=== PATIENT | male | born 1945 | race Caucasian/White ===

== ENCOUNTER 2019-07-29 18:18 | Emergency (ER) | payer MEDICARE ==
[~2019-07-29] VITALS: Ht 177.8 cm; Wt 124.5 kg
[2019-07-29 18:28] VITALS: BP 138/76
--- NOTE | 2019-07-29 18:54 | NUR ---
PT HERE WITH C/O LEFT EYE PAIN WITH LEFT EYELID DROOP. 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
--- NOTE | 2019-07-29 19:06 | NUR ---
AT BEDSIDE FOR EXAM.
--- NOTE | 2019-07-29 20:36 | NUR ---
PIV ESTABLISHED BY TASK RN. PT TO MRI.
--- NOTE | 2019-07-29 21:09 | NUR ---
BEDSIDE REPORT GIVEN TO NHUNG GENAO. CARE TRANSFERRED.
--- NOTE | 2019-07-29 21:17 | NUR ---
ASSUMED CARE OF PT AT THIS TIME
[2019-07-29] MEDS ORDERED: GADOTERATE 10 MMOL/20 ML SYR ONE (21:21)
[2019-07-29 21:52] LABS: BASOPHILS # (AUTO) 0.02 x10^3/uL (0-0.1); BASOPHILS % (AUTO) 0 % (0-1); EOSINOPHILS # (AUTO) 0.22 x10^3/uL (0-0.4); EOSINOPHILS % (AUTO) 3 % (1-7); LYMPHOCYTES # (AUTO) 1.69 x10^3/uL (1-3.4); LYMPHOCYTES % (AUTO) 22 % (22-44); MD NO; MEAN CORPUSCULAR HEMOGLOBIN 32.1 pg (27.5-34.5); MEAN CORPUSCULAR HGB CONC 32.8 g/dL (33.2-36.2); MEAN CORPUSCULAR VOLUME 97.8 fL (81-97); MEAN PLATELET VOLUME 9.8 fL (7.4-10.4); MONOCYTES # (AUTO) 0.73 x10^3/uL (0.2-0.8); MONOCYTES % (AUTO) 9 % (2-9); NEUTROPHILS # (AUTO) 5.21 x10^3/uL (1.8-6.8); NEUTROPHILS % (AUTO) 66 % (42-75); PLATELET COUNT 229 x10^3/uL (130-400); RED BLOOD COUNT 4.74 x10^6/uL (4.38-5.82); RED CELL DISTRIBUTION WIDTH 13.3 % (9.4-14.8)
[2019-07-29 22:01] LABS: ALBUMIN 3.9 g/dL (3.4-5.0); ANION GAP 5 mmol/L (5-15); CALCIUM 9.1 mg/dL (8.5-10.1); CHLORIDE 111 mmol/L (98-107); CREATININE 1.23 mg/dL (0.7-1.3)
[2019-07-29] MEDS ORDERED: PYRIDOSTIGMINE 60 MG TABLET PO ONE (22:30)
--- NOTE | 2019-07-29 22:54 | NUR ---
Patient/Caregiver given discharge instructions and they have confirmed that they understand the instructions. Patient ambulatory with steady gait.
== END 2019-07-29 22:55 | disposition home or self-care (01) ==
LOC: ED 21:18
DX: G70.01 Myasthenia gravis with (acute) exacerbation (principal); H02.402 Unspecified ptosis of left eyelid; J44.9 Chronic obstructive pulmonary disease, unspecified; I10 Essential (primary) hypertension; I25.2 Old myocardial infarction; Z72.89 Other problems related to lifestyle; Z87.891 Personal history of nicotine dependence
CPT/HCPCS: 36415; 70553; 80048; 82040; 83519; 85025; 99284; A9575

== ENCOUNTER 2019-10-02 11:13 | Outpatient (CLI) | payer MEDICARE | END 2019-10-02 23:59 | disposition home or self-care (01) | LOC: CFH 11:13 | PROVIDERS: ATTEND Psychiatry & Neurology Neurology | DX: G70.01 Myasthenia gravis with (acute) exacerbation (principal) | CPT/HCPCS: 83519 ==

== ENCOUNTER → 2019-10-29 | Outpatient (CLI) | payer MEDICARE ==
[~2019-10-29] MED LIST: OMNIPAQUE 350 MG/ML, 75ML BOTTLE ONE
== END | disposition home or self-care (01) ==
LOC: CFH 10:20
PROVIDERS: ATTEND Psychiatry & Neurology Neurology
DX: J43.9 Emphysema, unspecified (principal); Z95.1 Presence of aortocoronary bypass graft; I70.0 Atherosclerosis of aorta; K80.20 Calculus of gallbladder without cholecystitis without obstruction; N62 Hypertrophy of breast; M47.814 Spondylosis without myelopathy or radiculopathy, thoracic region; G70.01 Myasthenia gravis with (acute) exacerbation; J98.4 Other disorders of lung
CPT/HCPCS: 71260; 82565; Q9967

== ENCOUNTER → 2020-10-21 | Outpatient (CLI) | payer MEDICARE | END | disposition home or self-care (01) | LOC: PETCFH 13:36 | PROVIDERS: ATTEND Internal Medicine Critical Care Medicine | DX: R91.8 Other nonspecific abnormal finding of lung field (principal); I71.4 Abdominal aortic aneurysm, without rupture; K80.20 Calculus of gallbladder without cholecystitis without obstruction | CPT/HCPCS: 78815; A9552 ==

== ENCOUNTER → 2020-10-27 | Outpatient (CLI) | payer MEDICARE ==
[~2020-10-27] MED LIST changes: +ALBU90AE2 INH; +ATOR40TA78 PO; +CARV-39 PO; +DICL100G29 TP; +FLUT1BLS3 INH; +GABA300C PO; +HYDR-3237 PO; +MYCO500T3 PO; -OMNIPAQUE 350 MG/ML, 75ML BOTTLE ONE; +PYRI60TA PO; +SPIR25TA5 PO; +TIZA4TAB2 PO; +TRAZ-96 PO
[2020-10-27 15:08] LABS: BASOPHILS % (AUTO) 1 % (0-1); EOSINOPHILS % (AUTO) 2 % (1-7); LYMPHOCYTES % (AUTO) 20 % (22-44); MEAN CORPUSCULAR HEMOGLOBIN 30.8 pg (27.5-34.5); MEAN CORPUSCULAR HGB CONC 32.9 g/dL (33.2-36.2); MEAN PLATELET VOLUME 9.4 fL (7.4-10.4); MONOCYTES % (AUTO) 10 % (2-9); NEUTROPHILS % (AUTO) 67 % (42-75); PLATELET COUNT 241 x10^3/uL (130-400); RED BLOOD COUNT 4.29 x10^6/uL (4.38-5.82); RED CELL DISTRIBUTION WIDTH 13.3 % (9.4-14.8)
[2020-10-27 15:09] LABS: MD NO
[2020-10-27 15:16] LABS: INTERNATIONAL NORMALIZED RATIO 1.09 (0.93-1.1); PROTHROMBIN TIME 11.6 Seconds (9.6-11.5)
[2020-10-27 15:17] LABS: ALBUMIN 3.5 g/dL (3.4-5.0); ANION GAP 4 mmol/L (5-15); CALCIUM 8.4 mg/dL (8.5-10.1); CHLORIDE 111 mmol/L (98-107)
[2020-10-27 15:20] LABS: ALANINE AMINOTRANSFERASE 23 U/L (12-78); ALKALINE PHOSPHATASE 66 U/L (45-117); BILIRUBIN,TOTAL 0.4 mg/dL (0.2-1.0); CREATININE 1.27 mg/dL (0.7-1.3)
== END | disposition home or self-care (01) ==
LOC: STAR 13:44
PROVIDERS: ATTEND Neurological Surgery
DX: Z01.812 Encounter for preprocedural laboratory examination (principal); Z20.822 Contact with and (suspected) exposure to COVID-19; J44.9 Chronic obstructive pulmonary disease, unspecified; M48.062 Spinal stenosis, lumbar region with neurogenic claudication
CPT/HCPCS: 36415; 71046; 80053; 85025; 85610; 85730; 93005; U0003

== ENCOUNTER 2020-11-02 06:15 | Observation (INO) | payer MEDICARE ==
[~2020-11-02] VITALS: Ht 177.8 cm; Wt 132.0 kg
[2020-11-02] MEDS ORDERED: CHLORHEXIDINE 15 ML UDC PO ONE ×2 (07:30→09:00)
[2020-11-02] MEDS ORDERED: LACTATED RINGERS 1,000 ML IV SCH ×2 (07:30→09:00)
[2020-11-02] MEDS ORDERED: FENTANYL PF 250 MCG/5ML ONE (07:58)
[2020-11-02] MEDS ORDERED: PROPOFOL 50 ML ONE ×2 (07:58→10:34)
[2020-11-02] MEDS ORDERED: MIDAZOLAM 1 MG/ML, 2ML ONE (07:58)
[2020-11-02] MEDS ORDERED: EPINEPHRINE 1 MG/ML, 1ML ONE (08:32)
[2020-11-02] MEDS ORDERED: BACITRACIN 50,000 UNIT ONE (08:32)
[2020-11-02] MEDS ORDERED: BUPIVACAINE/PF 0.5% ONE (08:32)
[2020-11-02] MEDS ORDERED: CEFAZOLIN 1,000 MG ONE ×2 (08:48)
[2020-11-02] MEDS ORDERED: PROPOFOL 10 MG/ML, 20ML ONE (08:48)
[2020-11-02] MEDS ORDERED: DEXAMETHASONE 4 MG/ML, 1ML ONE ×2 (08:49)
[2020-11-02] MEDS ORDERED: ROCURONIUM 10MG/ML,5ML ONE (08:49)
[2020-11-02] MEDS ORDERED: ONDANSETRON 2MG/ML, 2ML ONE (08:49)
[2020-11-02] MEDS ORDERED: LIDOCAINE-MPF 2% ,5ML ONE (08:49)
[2020-11-02] MEDS ORDERED: PROMETHAZINE 25 MG/ML, 1ML IVPush PRN (10:30)
[2020-11-02] MEDS ORDERED: LABETALOL 5MG/ML, 20ML IV PRN ×2 (10:30→13:00)
[2020-11-02] MEDS ORDERED: HYDROmorphone 1 MG/ML, 1ML INJ IVPush PRN (10:30)
[2020-11-02] MEDS ORDERED: DIAZEPAM 5 MG/ML, 2ML IVPush PRN (10:30)
[2020-11-02] MEDS ORDERED: DIPHENHYDRAMINE 50 MG/ML, 1ML IVPush PRN ×2 (10:30→13:00)
[2020-11-02] MEDS ORDERED: ACETAMINOPHEN 325 MG TABLET PO PRN (10:30)
[2020-11-02] MEDS ORDERED: OXYcodone 5 MG/5 ML ORAL.SOL UDC PO PRN (10:30)
[2020-11-02] MEDS ORDERED: hydrALAzine 20 MG/ML, 1ML IV PRN (10:30)
[2020-11-02] MEDS ORDERED: MEPERIDINE/PF 25MG/0.5ML IVPush PRN (10:30)
[2020-11-02] MEDS ORDERED: ONDANSETRON 2MG/ML, 2ML IVPush PRN (10:30)
[2020-11-02] MEDS ORDERED: SUGAMMADEX 200 MG/2 ML IVPush ONE (11:09)
[2020-11-02] MEDS ORDERED: FENTANYL PF 100 MCG/2ML ONE (11:36)
[2020-11-02] MEDS ORDERED: OXYcodone 5 MG/5 ML ORAL.SOL UDC ONE (11:36)
[2020-11-02] MEDS: FENTANYL PF 100 MCG/2ML IV PRN ×2 (11:45→11:52)
[2020-11-02] MEDS ORDERED: HYDROmorphone 2 MG/ML, 1ML ONE (12:00)
[2020-11-02] MEDS ORDERED: METHOCARBAMOL 1,000 MG in DEXTROSE 5% 100 ML IV ONE (12:00)
[2020-11-02] MEDS ORDERED: ONDANSETRON 2MG/ML, 2ML IV PRN (13:00)
[2020-11-02] MEDS ORDERED: DIPHENHYDRAMINE 50 MG/ML, 1ML IM PRN (13:00)
[2020-11-02] MEDS ORDERED: BISACODYL 10 MG SUPP PR PRN (13:00)
[2020-11-02] MEDS ORDERED: HYDROmorphone 2MG TABLET PO PRN (13:00)
[2020-11-02] MEDS ORDERED: DIAZEPAM 5 MG TABLET PO PRN (13:00)
[2020-11-02] MEDS ORDERED: DIPHENHYDRAMINE 25 MG CAPSULE PO PRN (13:00)
[2020-11-02] MEDS ORDERED: OXYcodone IR 5MG TABLET PO PRN (13:00)
[2020-11-02] MEDS ORDERED: HYDROcodone/APAP 10/325 MG TABLET PO PRN (13:00)
[2020-11-02] MEDS ORDERED: MAGNESIUM HYDROXIDE 8%, 30ML UDC PO PRN (13:00)
[2020-11-02] MEDS ORDERED: CYCLOBENZAPRINE 10 MG TABLET PO PRN (13:00)
[2020-11-02] MEDS ORDERED: PROMETHAZINE 25 MG/ML, 1ML IM PRN (13:00)
[2020-11-02] MEDS ORDERED: HYDROmorphone 2 MG/ML, 1ML IM PRN (13:00)
[2020-11-02] MEDS ORDERED: PYRIDOSTIGMINE 60 MG TABLET PO SCH ×2 (13:30→13:51)
[2020-11-02] MEDS ORDERED: ALBUTEROL HFA 90 MCG/SPRAY INH PRN (13:30)
[2020-11-02 14:04] VITALS: BP 114/68
[2020-11-02] MEDS: NS + 20MEQ KCL 1,000 ML IV SCH (14:17)
[2020-11-02] MEDS: PYRIDOSTIGMINE 60 MG TABLET PO SCH ×3 (17:00→23:32)
[2020-11-02] MEDS: CEFAZOLIN PMX 1GM/50ML 50 ML IVPB SCH (17:11)
[2020-11-02] MEDS ORDERED: CARVEDILOL 25 MG TABLET PO SCH (18:00)
[2020-11-02 18:42] VITALS: BP 126/82
[2020-11-02] MEDS: METHOCARBAMOL 750 MG TABLET PO SCH (20:09)
[2020-11-02] MEDS ORDERED: TRAZODONE 50MG TABLET PO PRN (21:00)
[2020-11-02] MEDS: ATORVASTATIN 40 MG TABLET PO SCH (21:36)
[2020-11-02] MEDS: GABAPENTIN 300 MG CAPSULE PO SCH (21:36)
[2020-11-02] MEDS: TIZANIDINE 4MG TABLET PO SCH (21:36)
[2020-11-03 00:08] VITALS: BP 126/82
[2020-11-03] MEDS: CEFAZOLIN PMX 1GM/50ML 50 ML IVPB SCH (01:03)
[2020-11-03] MEDS: NS + 20MEQ KCL 1,000 ML IV SCH ×3 (02:20→22:10)
[2020-11-03 03:37] VITALS: BP 121/80
[2020-11-03] MEDS: METHOCARBAMOL 750 MG TABLET PO SCH ×3 (04:10→19:49)
[2020-11-03] MEDS: PYRIDOSTIGMINE 60 MG TABLET PO SCH ×7 (04:10→22:30)
[2020-11-03 05:09] LABS: BASOPHILS % (AUTO) 0 % (0-1); EOSINOPHILS % (AUTO) 0 % (1-7); LYMPHOCYTES % (AUTO) 5 % (22-44); MEAN CORPUSCULAR HEMOGLOBIN 30.6 pg (27.5-34.5); MEAN CORPUSCULAR HGB CONC 32.2 g/dL (33.2-36.2); MEAN PLATELET VOLUME 9.1 fL (7.4-10.4); MONOCYTES % (AUTO) 7 % (2-9); NEUTROPHILS % (AUTO) 88 % (42-75); PLATELET COUNT 213 x10^3/uL (130-400); RED BLOOD COUNT 4.18 x10^6/uL (4.38-5.82); RED CELL DISTRIBUTION WIDTH 13.6 % (9.4-14.8)
[2020-11-03 05:10] LABS: MD NO
[2020-11-03 05:21] LABS: ALBUMIN 3.5 g/dL (3.4-5.0); ANION GAP 7 mmol/L (5-15); CALCIUM 8.6 mg/dL (8.5-10.1); CHLORIDE 110 mmol/L (98-107); CREATININE 1.48 mg/dL (0.7-1.3)
[2020-11-03] MEDS: SPIRONOLACTONE 25 MG TABLET PO SCH (08:19)
[2020-11-03] MEDS: GABAPENTIN 300 MG CAPSULE PO SCH ×2 (08:19→20:54)
[2020-11-03 08:20] VITALS: BP 118/65
[2020-11-03] MEDS: FLUTICASONE HOMEINH SCH (08:20)
[2020-11-03] MEDS: UMECLIDINIUM HOMEINH SCH (08:20)
[2020-11-03] MEDS: VILANTEROL HOMEINH SCH (08:20)
[2020-11-03] MEDS: SENNA/DOCUSATE TABLET PO SCH (08:21)
[2020-11-03 12:55] VITALS: BP 127/72
[2020-11-03 16:48] VITALS: BP 106/60
[2020-11-03] MEDS: CARVEDILOL 25 MG TABLET PO SCH (17:53)
[2020-11-03 19:17] VITALS: BP 113/72
[2020-11-03] MEDS: TIZANIDINE 4MG TABLET PO SCH (20:54)
[2020-11-03] MEDS: ATORVASTATIN 40 MG TABLET PO SCH (20:54)
[2020-11-04 00:30] VITALS: BP 125/84
[2020-11-04] MEDS: PYRIDOSTIGMINE 60 MG TABLET PO SCH ×4 (01:23→10:55)
[2020-11-04] MEDS: METHOCARBAMOL 750 MG TABLET PO SCH ×2 (04:16→11:49)
[2020-11-04 05:05] LABS: BASOPHILS % (AUTO) 0 % (0-1); EOSINOPHILS % (AUTO) 0 % (1-7); LYMPHOCYTES % (AUTO) 12 % (22-44); MD NO; MEAN CORPUSCULAR HEMOGLOBIN 31.3 pg (27.5-34.5); MEAN CORPUSCULAR HGB CONC 32.8 g/dL (33.2-36.2); MEAN PLATELET VOLUME 9.5 fL (7.4-10.4); MONOCYTES % (AUTO) 13 % (2-9); NEUTROPHILS % (AUTO) 75 % (42-75); PLATELET COUNT 199 x10^3/uL (130-400); RED BLOOD COUNT 3.68 x10^6/uL (4.38-5.82); RED CELL DISTRIBUTION WIDTH 13.4 % (9.4-14.8)
[2020-11-04] MEDS: CARVEDILOL 25 MG TABLET PO SCH (05:48)
[2020-11-04 06:30] VITALS: BP 100/66
[2020-11-04] MEDS: GABAPENTIN 300 MG CAPSULE PO SCH (07:39)
[2020-11-04] MEDS: SENNA/DOCUSATE TABLET PO SCH (07:40)
[2020-11-04] MEDS: SPIRONOLACTONE 25 MG TABLET PO SCH (07:43)
[2020-11-04] MEDS: VILANTEROL HOMEINH SCH (09:00)
[2020-11-04] MEDS: UMECLIDINIUM HOMEINH SCH (09:00)
[2020-11-04] MEDS: FLUTICASONE HOMEINH SCH (09:00)
[2020-11-04 12:30] VITALS: BP 135/77
== END 2020-11-04 12:58 | disposition home or self-care (01) ==
LOC: OUT 06:15 → 4NE 12:33 → OUT 14:09 → DCLOUNGE 11-04 12:54
PROVIDERS: ADMIT Neurological Surgery; ATTEND Neurological Surgery
DX: M48.07 Spinal stenosis, lumbosacral region (principal); M51.16 Intervertebral disc disorders with radiculopathy, lumbar region; I10 Essential (primary) hypertension; E78.00 Pure hypercholesterolemia, unspecified; E66.01 Morbid (severe) obesity due to excess calories; J44.9 Chronic obstructive pulmonary disease, unspecified; Z86.73 Personal history of transient ischemic attack (TIA), and cerebral infarction without residual deficits; Z79.899 Other long term (current) drug therapy; Z95.1 Presence of aortocoronary bypass graft; Z87.891 Personal history of nicotine dependence
CPT/HCPCS: 36415; 63030; 63035; 63056; 72100; 80048; 82040; 85025; 96361; 96365; 96366; 96375; 96376; 97116; 97161; G0378; J0171; J0690; J1100; J1170; J2250; J2270; J2405; J2704; J2800; J3010; J3480; J3490; J7120; J7517; S0020

== ENCOUNTER 2021-01-04 11:08 | Day surgery (SDC) | payer MEDICARE ==
[~2021-01-04] VITALS: Ht 177.8 cm; Wt 120.0 kg
[2021-01-04 11:58] VITALS: BP 128/80
[2021-01-04] MEDS ORDERED: LIDOCAINE 1%, 10ML ONE (12:08)
[2021-01-04] MEDS ORDERED: FENTANYL PF 100 MCG/2ML ONE (12:51)
[2021-01-04] MEDS ORDERED: NALOXONE 1 MG/ML, 2ML ONE (12:51)
[2021-01-04] MEDS ORDERED: FLUMAZENIL 0.1 MG/1 ML, 5ML ONE (12:51)
[2021-01-04] MEDS ORDERED: MIDAZOLAM 1 MG/ML, 5ML ONE (12:51)
== END 2021-01-04 15:15 | disposition home or self-care (01) ==
LOC: OUT 11:08
PROVIDERS: ATTEND Internal Medicine Critical Care Medicine
DX: C34.91 Malignant neoplasm of unspecified part of right bronchus or lung (principal); R91.1 Solitary pulmonary nodule; I10 Essential (primary) hypertension; I25.10 Atherosclerotic heart disease of native coronary artery without angina pectoris; G47.00 Insomnia, unspecified; E78.5 Hyperlipidemia, unspecified; E66.01 Morbid (severe) obesity due to excess calories; J44.9 Chronic obstructive pulmonary disease, unspecified; Z79.899 Other long term (current) drug therapy; Z87.891 Personal history of nicotine dependence; Z79.82 Long term (current) use of aspirin; Z72.89 Other problems related to lifestyle; Z98.890 Other specified postprocedural states; Z68.38 Body mass index [BMI] 38.0-38.9, adult
CPT/HCPCS: 32408; 71045; 88305; 99156; 99157; C2613; J2250; J3010; 77012; J2310

== ENCOUNTER 2021-04-25 12:41 | Outpatient (CLI) | payer MEDICARE ==
[2021-04-25] MEDS ORDERED: OMNIPAQUE 350 MG/ML, 100ML BOTTLE ONE (13:15)
[2021-05-03] MEDS ORDERED: OXYC1TAB12 PO (11:57)
== END 2021-04-25 23:59 | disposition home or self-care (01) ==
LOC: CFH 12:41
PROVIDERS: ATTEND Radiology Radiation Oncology
DX: C34.31 Malignant neoplasm of lower lobe, right bronchus or lung (principal); I10 Essential (primary) hypertension; J01.00 Acute maxillary sinusitis, unspecified
CPT/HCPCS: 70460; Q9967